=== PATIENT | male | born 1980 | race Caucasian/White ===

== ENCOUNTER 2019-08-29 23:45 | Emergency (ER) | payer OTHER ==
[~2019-08-29] VITALS: Ht 167.6 cm; Wt 123.4 kg
[2019-08-29 23:56] VITALS: BP 157/109
--- NOTE | 2019-08-30 01:22 | NUR ---
PATIENT STATES NO CHANGE IN CONDITION. AWAITING BED IN LOBBY.
--- NOTE | 2019-08-30 01:51 | NUR ---
PATIENT AAO, NO DISTRESS NOTED. NO NEW COMPLAINTS STATED.
--- NOTE | 2019-08-30 02:35 | NUR ---
PT AMBULATED TO BED
[2019-08-30 02:43] VITALS: BP 140/95
--- NOTE | 2019-08-30 02:43 | NUR ---
39 Y/O M PRESENTS TO ED WITH C/O FEVER AND BODY ACHES X1 DAY. PT AFEBRILE AT THIS TIME. PT REPORTS ALTERNATING BETWEEN DAYQUIL AND NYQUIL WITH SOME RELIEF. +SICK CONTACTS. PT DID NOT RECEIVE FLU VACCINATION THIS YEAR. BEDRAIL X1 UP. WILL CONTINUE TO MONITOR.
--- NOTE | 2019-08-30 02:59 | NUR ---
Patient discharged with v/s stable. Written and verbal after care instructions given and explained. Patient alert, oriented and verbalized understanding of instructions. Ambulatory with steady gait. All questions addressed prior to discharge. ID band removed. Patient advised to follow up with PMD. Rx of tamiflu given. Patient educated on indication of medication including possible reaction and side effects. Opportunity to ask questions provided and answered.
== END 2019-08-30 02:59 | disposition home or self-care (01) ==
LOC: MED 23:45
DX: R05 Cough (principal)